=== PATIENT | female | born 1995 | race Two or more races ===

== ENCOUNTER 2018-10-13 09:22 | Emergency (ER) | payer BC | END 2018-10-13 11:48 | disposition home or self-care (01) | LOC: FTE 09:22 | DX: S92.411A Displaced fracture of proximal phalanx of right great toe, initial encounter for closed fracture (principal); S49.91XA Unspecified injury of right shoulder and upper arm, initial encounter; J45.909 Unspecified asthma, uncomplicated; W18.30XA Fall on same level, unspecified, initial encounter; Y92.9 Unspecified place or not applicable | CPT/HCPCS: 73030; 73030-RT; 73660; 81025; 99284-25 ==